=== PATIENT | male | born 1975 | race Two or more races ===

== ENCOUNTER 2021-05-25 14:55 | Emergency (ER) | payer MEDICAID, SELFPAY ==
[2021-05-25 14:56] VITALS: BP 157/96; PULSE 95; RESP 16; TEMP 36.8; O2SAT 100; BMI 26.1
--- NOTE | 2021-05-25 15:52 | CT_ITS ---
HISTORY: flank pain. TECHNIQUE: Helically acquired images were obtained of the abdomen and pelvis without oral or IV contrast as per renal stone protocol. A radiation dose optimization technique was used for this scan. # of images incl. paperwork: [id number]. COMPARISON: None. FINDINGS: LUNG BASES: Clear. BOWEL: Bowel including appendix nondilated. Colonic diverticulosis without pericolonic inflammation. PERITONEUM: No significant ascites. LIVER/BILIARY TRACT: Unremarkable liver.Gallbladder contracted. SPLEEN: Non-enlarged. PANCREAS: No peripancreatic inflammation. KIDNEYS AND URETERS: Bilateral 2-3 mm renal calculi. No obstructing ureterolithiasis. ADRENAL GLANDS: Non-enlarged. VESSELS: No abdominal aortic aneurysm. PELVIC ORGANS: Bladder wall thickening with mild perivesical and periprostatic stranding. Small prostate calcifications with a 5 mm calcification in the region of the prostatic urethra. ABDOMINAL WALL: Edema in the bilateral inguinal canals. Scrotal wall edema with mild hydroceles. BONES: Intact. CT/Abdomen/Pelvis without Cont IMPRESSION: Edema in the pelvis concerning for prostatocystitis. Extensive edema in the bilateral inguinal canals extending into the scrotum with mild scrotal hydroceles. 5 mm calcification in the central prostate gland, suspicious for calculus in the prostatic urethra. Bilateral nephrolithiasis without obstructing ureterolithiasis. Colonic diverticulosis without acute diverticulitis. Individualized dose optimization techniques were used for this CT. at 1639 Reported and signed by: Monica Santamaria MD Electronically Signed: Monica Santamaria MD at 16:37 EST Tel , Service support ,
--- NOTE | 2021-05-25 15:52 | US_ITS ---
STUDY: SCROTUM ULTRASOUND REASON FOR EXAM: Male, 46 years old. Pain TECHNIQUE: Ultrasound evaluation of the scrotum was performed with color Doppler and static paul-scale imaging. COMPARISON: None. FINDINGS: RIGHT TESTICLE INTRATESTICULAR: There is a normal size of the right testicle. The right testicle measures 4.4 x 3.4 x 2.9 cm. There is a homogenous echotexture. There is normal arterial and normal venous vascularity. There is no demonstrated right testicular mass or cyst. EXTRATESTICULAR: The epididymis is enlarged. The epididymis head measures 1.7 x 0.8 x 1.3 cm. There is increased vascularity of the epididymis. There is no demonstrated epididymal cystic structure. There is moderate sized complex hydrocele. There is no demonstrated varicocele. There is no demonstrated extratesticular mass or cyst. LEFT TESTICLE INTRATESTICULAR: There is a normal size of the left testicle. The left testicle measures 2.9 x 3.4 x 2.7 cm. There is a homogenous echotexture. There is normal arterial and normal venous vascularity. There is no demonstrated left testicular mass or cyst. EXTRATESTICULAR: The epididymis is enlarged. The epididymis head measures 1.6 x 1.2 x 0.9 cm. There is increased vascularity of the epididymis. There is no demonstrated epididymal cystic structure. There is moderate size complex hydrocele. There is no demonstrated varicocele. There is no demonstrated extratesticular mass or cyst. US/Testicular with Arterial Flow IMPRESSION: Findings consistent with bilateral acute epididymitis and complex hydroceles possibly inflammatory. Electronically Signed: Yovanny Best MD at 18:18 EST , Service support ,
--- NOTE | 2021-05-25 15:53 | EX.ED.GUMALE ---
HPI History of Present Illness Chief Complaint: Male Pain/Injury Narrative Narrative: 46-year-old male with multiple somatic complaints. He states that for the last 5 to 6 days he has had bilateral flank pain, right greater than left. He has pain underneath his testicles. He states he has dysuria and bladder pain when he tries to urinate mainly on the right. He denies any hematuria. No fevers or chills. He states that he thought maybe he had testicular pain from not ejaculating, and he states when he tried to ejaculate nothing came out. He denies any significant past medical history. He also states that he thinks his penis has been swollen for the last 5 to 6 days. PFSH PFSH Medical History no medical history Home Medications ciprofloxacin HCl [Cipro] 500 mg PO BID #28 tab 05/25/21 [Rx Last Taken Unknown] ibuprofen 800 mg PO Q8H PRN #30 tab 05/25/21 [Rx Last Taken Unknown] Allergy/AdvReac Type Severity Reaction Status Date / Time No Known Allergies Allergy Verified 05/25/21 14:56 Family History no significant family his Surgical History no surgical history Social History Smoking Status: Current every day smoker tobacco type: cigarettes ROS ROS ED ROS Narrative Constitutional: No fever, no chills. HEENT: No sore throat. No neck pain. No loss of vision. No rhinorrhea. Cardiovascular: No chest pain. No palpitations. No pedal edema. Respiratory: No cough, no shortness of breath. Abdominal: No abdominal pain. No nausea. No vomiting. Genitourinary: Positive dysuria. No hematuria. Bilateral testicular pain. Pain underneath his scrotum. Bilateral flank pain right greater than left. Bladder pain. Musculoskeletal: No myalgias. No arthralgias. Neurologic: No headaches. No dizziness. No lightheadedness. Skin: No rash. No change in color. Psychiatric: No depression. No anxiety. EXAM Physical Exam Narrative Exam Narrative: Afebrile. Vital signs noted. HEENT: Normocephalic. Atraumatic. PERRL, EOMI. Neck soft and supple. No point tenderness or step off. Cardiovascular: Regular rate and rhythm. No murmurs, rubs, or gallops appreciated. Respiratory: No tachypnea. Lungs clear to auscultation bilaterally. Gastrointestinal: Abdomen soft, nontender, with normoactive bowel sounds. No rebound or guarding. Genitourinary: Chaperoned examination reveals mild tenderness on frenulum of scrotum secondary to chafing. Bilateral testicular pain. No palpable hernia in the inguinal area. No erythema. No inguinal lymphadenopathy. No appreciable penile swelling. Neurological: Awake. Alert. Nonfocal, nonlateralizing. Skin: No rash. Normal color. No pallor. Musculoskeletal: No pedal edema. Full range of motion extremities. Const Vital Signs: 05/25/21 14:56 Temperature 98.3 F Temperature Source Temporal Pulse Rate 95 Respiratory Rate 16 Blood Pressure 157/96 H Blood Pressure Mean 116 Pulse Ox 100 Oxygen Delivery Method Room Air MDM MDM MDM Narrative Medical decision making narrative: Urinalysis was obtained. I will obtain CT imaging of the abdomen and pelvis without contrast to look for ureterolithiasis. I believe it would also show any sort of inguinal hernia. Given his testicular pain and reported swelling of his testicles and penis, ultrasound will be obtained. CBC shows an elevated white count of 15.3, hemoglobin stable at 12.4, platelet count is normal. Electrolyte panel shows normal creatinine of 0.75 with a BUN of 14. His urinalysis shows 25 leukocyte esterase but no nitrites. Only 5-10 WBCs are seen on microscopic examination. Lactic acid is normal. Ultrasound was obtained of the scrotum contents which shows bilateral epididymitis and inflammatory hydroceles. I did obtain a CT of the abdomen and pelvis without contrast. While there is no evidence of hernia, there is noted edema in the bilateral inguinal areas extending into the scrotum. There is inflammation and fluid noticed in the pelvis consistent with prostatitis cystitis. At this point in time, patient will be started on antibiotics. He will also be started on anti-inflammatories. He was told to follow-up with urology and was referred to Dr. Varela. I feel he can be discharged safely home with follow-up. He was given a prescription for ciprofloxacin for the next 14 days to take twice a day which should treat his epididymitis and his prostatitis/prostatocystitis. Strict return instructions were reviewed. Patient is comfortable with the plan. Disposition is discharged home in stable condition. Lab Data Attestation: I reviewed the patient's lab results. Labs: Laboratory Results - last 24 hr 05/25/21 05/25/21 05/25/21 15:38 17:30 17:30 WBC 15.3 H RBC 3.98 L Hgb 12.4 L Hct 36.3 L MCV 91.2 MCH 31.2 MCHC 34.2 RDW Std Deviation 39.8 RDW Coeff of Halima 11.7 Plt Count 311 MPV 9.1 Immature Gran % (Auto) 0.600 Neut % (Auto) 78.1 H Lymph % (Auto) 10.1 L Kingsbury % (Auto) 6.8 Eos % (Auto) 3.9 Baso % (Auto) 0.5 Absolute Neuts (auto) 11.9 H Absolute Lymphs (auto) 1.54 Nucleated RBC % 0 Sodium 138 Potassium 3.7 Chloride 106 Carbon Dioxide 27.0 Anion Gap 5 BUN 14 Creatinine 0.75 Estim Creat Clear Calc 124.38 Est GFR (MDRD) Af Amer 146 Est GFR (MDRD) Non-Af 120 BUN/Creatinine Ratio 18.7 Glucose 181 H Lactic Acid Calcium 8.8 Urine Color Yellow Urine Clarity Clear Urine pH 6.0 Ur Specific Art 1.020 Urine Protein Negative Urine Glucose (UA) Normal Urine Ketones Negative Urine Occult Blood 10 H Urine Nitrite Negative Urine Bilirubin Negative Urine Urobilinogen Normal Ur Leukocyte Esterase 25 H Urine RBC 0 SEEN Urine WBC 5-10 SEEN Ur Squamous Epith Cells 0 SEEN Urine Bacteria 0 SEEN Urine Mucus 0 SEEN 05/25/21 17:30 WBC RBC Hgb Hct MCV MCH MCHC RDW Std Deviation RDW Coeff of Halima Plt Count MPV Immature Gran % (Auto) Neut % (Auto) Lymph % (Auto) Kingsbury % (Auto) Eos % (Auto) Baso % (Auto) Absolute Neuts (auto) Absolute Lymphs (auto) Nucleated RBC % Sodium Potassium Chloride Carbon Dioxide Anion Gap BUN Creatinine Estim Creat Clear Calc Est GFR (MDRD) Af Amer Est GFR (MDRD) Non-Af BUN/Creatinine Ratio Glucose Lactic Acid 0.7 Calcium Urine Color Urine Clarity Urine pH Ur Specific Art Urine Protein Urine Glucose (UA) Urine Ketones Urine Occult Blood Urine Nitrite Urine Bilirubin Urine Urobilinogen Ur Leukocyte Esterase Urine RBC Urine WBC Ur Squamous Epith Cells Urine Bacteria Urine Mucus Radiography Diagnostic Testing: Clinical Impression(s) from Imaging Studies Abdomen/Pelvis CT 05/25/21 15:52 IMPRESSION: Edema in the pelvis concerning for prostatocystitis. Extensive edema in the bilateral inguinal canals extending into the scrotum with mild scrotal hydroceles. 5 mm calcification in the central prostate gland, suspicious for calculus in the prostatic urethra. Bilateral nephrolithiasis without obstructing ureterolithiasis. Colonic diverticulosis without acute diverticulitis. Individualized dose optimization techniques were used for this CT. at 1639 Reported and signed by: Monica Santamaria MD Electronically Signed: Monica Santamaria MD at 16:37 EST Tel , Service support , Testicular Ultrasound 05/25/21 15:52 IMPRESSION: Findings consistent with bilateral acute epididymitis and complex hydroceles possibly inflammatory. Electronically Signed: Yovanny Best MD at 18:18 EST , Service support , Discharge Plan Triage Chief Complaint: Male Pain/Injury ED Provider: Scott Connor Dx/Rx/DC Orders Clinical Impression: Prostatocystitis, Epididymitis Instructions: ED Epididymitis, ED Prostatitis Prescriptions: New ciprofloxacin HCl [Cipro] 500 mg tablet 500 mg PO BID Qty: 28 RF: 0 ibuprofen 800 mg tablet 800 mg PO Q8H PRN (Reason: pain) Qty: 30 RF: 0 Primary Care Provider: Care Physician,No Primary Referrals: Lex Varela MD [STAFF PHYSICIAN] - 05/27/21 Care Physician,No Primary [Primary Care Provider] - Disposition Disposition: Home, Self Care
[2021-05-25 16:08] LABS: Bacteria 0 SEEN /hpf (None Seen); Mucous, Urine 0 SEEN /hpf (<or=2+); Red Blood Cells-Urine 0 SEEN /hpf (0-5); Squamous Epithelial Cells - UA 0 SEEN /hpf (0-5)
[2021-05-25 16:10] LABS: Color, Urine Yellow (Yellow); Glucose, Dipstick Normal (Normal); Ketone-Dipstick Negative (Negative); Leukocyte Esterase-Dipstick 25 /ul (Negative); Nitrite-Dipstick Negative (Negative); Occult Blood-Urine 10 /ul (Negative); Protein-Dipstick Negative (Negative); Urine Bilirubin Dipstick Negative (Negative); Urine Clarity Clear (Clear); Urine Urobilinogen Normal (Normal)
[2021-05-25 16:17] LABS: White Blood Cells 5-10 SEEN /hpf (0-5)
[2021-05-25 17:39] LABS: Absolute Lymphocyte Count 1.54 X10^3/uL (0.83-4.51); Absolute Neutrophil Count 11.9 X10^3/uL (2.0-7.7); Basophil# 0.08 X10^3/uL; Basophil% 0.5 % (0-1); Eosinophils% 3.9 % (0-5); Hematocrit 36.3 % (40-54); Hemoglobin 12.4 g/dL (13.0-16.5); Lymphocyte # 1.54 X10^3/ul (0.83-4.51); Lymphocyte % 10.1 % (19-41); Mean Corp Hgb Conc 34.2 g/dL (32-36); Mean Corpuscular Hgb 31.2 pg (27.0-32.0); Mean Corpuscular Volume 91.2 fL (80-94); Mean Platelet Vol. 9.1 fl (6.2-12.0); Monocyte# 1.04 X10^3/uL; Monocyte% 6.8 % (0-10); NRBC Flagged by Analyzer 0 % (0-5); Neutrophil # 11.92 X10^3/uL (2.7-7.7); Neutrophil % 78.1 % (47-70); Platelet Count 311 K/mm3 (150-450); RBC Distribution Width CV 11.7 % (11.6-14.6); RBC Distribution Width SD 39.8 fl (35.1-43.9); Red Blood Count 3.98 M/mm3 (4.6-6.2); White Blood Count 15.3 K/mm3 (4.4-11.0)
[2021-05-25 17:52] LABS: Anion Gap 5 (5-15); BUN 14 mg/dL (7-18); BUN/Creat Ratio 18.7 RATIO (10-20); Calcium,Total 8.8 mg/dL (8.5-10.1); Chloride 106 mmol/L (98-107); Creatinine, Serum 0.75 mg/dL (0.70-1.30); EST Glomerular Filtration Rate 120 mL/min (>60); Est Glom Filt Rate - Afr Amer 146 mL/min (>60); Estimated Creatinine Clearance 124.38 ml/min; Glucose 181 mg/dL (74-106); Potassium 3.7 mmol/L (3.5-5.1); Sodium Level 138 mmol/L (136-145)
[2021-05-25 18:00] LABS: Lactic Acid 0.7 mmol/L (0.4-1.9)
[2021-05-25 19:52] VITALS: RESP 18
[2021-05-25] MEDS: Ciprofloxacin 500 MG Tablet PO (19:52)
== END 2021-05-25 19:54 | disposition home or self-care (01) ==
PROVIDERS: Emergency Provider Emergency Medicine
DX: N41.3 Prostatocystitis (principal); N45.1 Epididymitis; F17.210 Nicotine dependence, cigarettes, uncomplicated
CPT/HCPCS: 74176; 76870; 80048; 81001; 83605; 85025; 93976; 99283; A4216

== ENCOUNTER 2021-08-07 17:59 | Emergency (ER) | payer MEDICAID, SELFPAY ==
[2021-08-07 18:01] VITALS: BP 151/110; PULSE 85; RESP 14; TEMP 36.8; O2SAT 98; BMI 23.5
--- NOTE | 2021-08-07 18:06 | ED.VIS.LOWEX ---
HPI History of Present Illness Chief Complaint: Laceration Detail of Chief Complaint: Laceration distal anterior right leg Informant: patient Occured/Mechanism Mechanism/Context: Yes blunt trauma Comment: Laceration distal anterior right leg due to jewel bearing grinder Onset/Context/Timing Context: Sudden Onset Timing: Continuous Location: Anterior distal right leg Current Severity: Mild Maximum Severity: Moderate Worsened by: Laceration Relieved by: Not applicable Associated Symptoms Associated Symptoms: Negative for Parasthesia, Weakness and Loss of Funtion Narrative Narrative: Patient is a 46-year-old male who was fabricating a metal part for a go-cart. He states the jewel bearing grinder jumped and he sustained laceration to the distal anterior right leg. He denies paresthesia, anesthesia medics. He does not recall his last tetanus shot and believes it was greater than 10 years. He has no history of diabetes. He has no history of PAD. Tetanus Immunization: >10 years Prior similar symptoms: No Recent Illness/Hospitalization: No PFSH PFSH Home Medications ciprofloxacin HCl [Cipro] 500 mg PO BID #28 tab 05/25/21 [Rx Last Taken Unknown] ibuprofen 800 mg PO Q8H PRN #30 tab 05/25/21 [Rx Last Taken Unknown] Allergy/AdvReac Type Severity Reaction Status Date / Time No Known Allergies Allergy Verified 08/07/21 18:01 Social History (Updated 08/07/21 @ 18:[address] Rebel Herbert MD) household members: spouse Smoking Status: Current every day smoker tobacco type: cigarettes substance use type: does not use ROS ROS ED Musculoskeletal Musculoskeletal: Denies arthralgias, back pain, myalgias or neck pain Integumentary Reports other Details: Laceration as previously described ; Denies abscess, Abrasions or rash Neurologic Neurologic: Denies paresthesias or weakness Hematologic/Lymphatic Hematologic/Lymphatic: Denies anemia, easy bleeding or easy bruising EXAM Physical Exam Const Vital Signs: 08/07/21 18:01 Temperature 98.2 F Temperature Source Temporal Pulse Rate 85 Respiratory Rate 14 Blood Pressure 151/110 H Blood Pressure Mean 123 Pulse Ox 98 Oxygen Delivery Method Room Air Positive well nourished and well developed General Appearance ED: well developed and NAD HEENT normocephalic and atraumatic Eyes PERRL Eyes Narrative: Extract muscle intact. Sclerae anicteric. Neck full ROM Resp normal respiratory effort Cardio regular rate and regular rhythm Extremity full ROM; Negative for normal to inspection Extremity Narrative: Patient has an approximate 2.5 cm laceration. There is active bleeding. DP and PT pulse are palpable. Sensation over the dorsal and plantar surface of the foot are normal. General Extremety ED: Negative for cyanosis, edema or weight-bearing difficulty General Extremity: Negative for cyanosis, edema or weight-bearing difficulty Neuro oriented x3, CN's II-XII intact bilaterally and no sensory deficits noted Sensorium / Orientation: alert Motor Exam: strength 5/5 throughout Psych mental status grossly normal Skin Lesions: no lesions Rashes: no rashes Trauma: laceration linear, actively bleeding, involves subcutaneous tissue, motor nerve function intact and sensation intact MDM MDM MDM Narrative Medical decision making narrative: Tetanus was updated and laceration will require repair please read procedure note. Procedures Other Procedures Procedure(s): Length of laceration is 2.2 cm. The wound was anesthetized with 1% lidocaine by local infiltration. The wound was cleansed and irrigated. 4 simple interrupted sutures placed using 4-0 Ethilon. Bleeding stopped. Discharge Plan Triage Chief Complaint: Laceration ED Provider: Rebel Herbert Dx/Rx/DC Orders Clinical Impression: Laceration of right lower leg Instructions: ED Laceration: All Closures Prescriptions: No Action ciprofloxacin HCl [Cipro] 500 mg tablet 500 mg PO BID Qty: 28 RF: 0 ibuprofen 800 mg tablet 800 mg PO Q8H PRN (Reason: pain) Qty: 30 RF: 0 Primary Care Provider: Care Physician,No Primary Referrals: Care Physician,No Primary [Primary Care Provider] - Activity Restrictions/Additional Instructions: The name of your physician is typed on your insurance card. Contact your physician to have sutures removed in 10 to 14 days. Clean wound with peroxide on a Q-tip 3 times a day then apply bacitracin ointment Keep wound clean and dry for the first 48 to 72 hours.
[2021-08-07] MEDS: Diphth,Pertuss(Acell),Tet Vac 0.5 ML Vial IM (18:16)
[2021-08-07] MEDS: Lidocaine 1% (20 ml mdv) 20 ML Vial INFILT (18:17)
== END 2021-08-07 18:36 | disposition home or self-care (01) ==
LOC: ED 18:33
PROVIDERS: Emergency Provider Emergency Medicine; Visit Provider Emergency Medicine
DX: S81.811A Laceration without foreign body, right lower leg, initial encounter (principal); F17.210 Nicotine dependence, cigarettes, uncomplicated; Z23 Encounter for immunization; X58.XXXA Exposure to other specified factors, initial encounter
CPT/HCPCS: 12001; 90471; 90715; 99282

== ENCOUNTER 2021-09-26 23:25 | Emergency (ER) | payer MEDICAID, SELFPAY ==
[2021-09-26 23:27] VITALS: BP 167/105; PULSE 96; RESP 18; TEMP 36.4; O2SAT 100; BMI 21.6
--- NOTE | 2021-09-26 23:34 | EX.ED.VIS.EY ---
HPI History of Present Illness Chief Complaint: Eye Problem Narrative Narrative: 46-year-old male with foreign body sensation to the left eye. He states he was grinding on a golf cart 3 days ago and felt a foreign body sensation in the left eye. It did become significantly painful until today. He complains of pain in the center of his eye. He does have eye watering. Denies any other trauma. He is a noncontact wearer. No visual complaints. PFSH PFSH Home Medications ciprofloxacin HCl [Cipro] 500 mg PO BID #28 tab 05/25/21 [Rx Last Taken Unknown] ibuprofen 800 mg PO Q8H PRN #30 tab 05/25/21 [Rx Last Taken Unknown] ketorolac 1 drp EACH EYE Q6H PRN #5 ml 09/27/21 [Rx Last Taken Unknown] ofloxacin 2 drp LEFT EYE Q6H #10 ml 09/27/21 [Rx Last Taken Unknown] Allergy/AdvReac Type Severity Reaction Status Date / Time No Known Allergies Allergy Verified 08/07/21 18:01 Social History household members: spouse Smoking Status: Current every day smoker tobacco type: cigarettes substance use type: does not use ROS ROS ED Constitutional Constitutional ED: Denies chills or fever(s) Eyes Eyes: Reports other Details: Left eye watering and irritation. ENT ENT ED: Denies rhinorrhea or sore throat Cardiovascular Cardiovascular: Denies chest pain or palpitations Respiratory/Chest Respiratory/Chest: Denies cough or dyspnea Gastrointestinal Gastrointestinal: Denies abdominal pain, nausea or vomiting Genitourinary Genitourinary ED: Denies dysuria or hematuria Musculoskeletal Musculoskeletal: Denies arthralgias or myalgias Integumentary Denies rash Neurologic Neurologic: Denies headache(s), paresthesias or weakness Psychiatric Psychiatric: Denies anxiety or depression EXAM Physical Exam Const Vital Signs: 09/26/21 23:27 Temperature 97.6 F L Temperature Source Temporal Pulse Rate 96 Respiratory Rate 18 Blood Pressure 167/105 H Blood Pressure Mean 125 Pulse Ox 100 Oxygen Delivery Method Room Air Positive well nourished General Appearance ED: NAD HEENT atraumatic; Negative for trauma Eyes Visual Field: No peripheral vision loss Alignment: alignment normal Periorbital: No periorbital findings normal Eyelid: eyelids normal Sclera: sclera abnormal Positive for left Details: scleral injection Cornea: cornea abnormal Positive for left Cornea - Left Eye: Positive for foreign body (Plan to be symmetrical just right of the midline in the cornea in the 9:00 direction with rust ring) Details: Positive for metal Pupil: PERRL and accommodation reflex normal Direct Ophthalmoscopy: normal light reflex Slit Lamp: slit lamp exam performed with fluorescein, lids/lashes/lacrimal system normal appearing and conjunctiva/sclera diffuse conjunctiva injection Resp normal respiratory effort and clear to auscultation bilaterally Cardio regular rate and regular rhythm Neuro oriented x3 and CN's II-XII intact bilaterally Sensorium / Orientation: alert MDM MDM MDM Narrative Medical decision making narrative: Patient is a noncontact wearer. Fluorescein and tetracaine are instilled into the left eye. Patient did not have significant control of his irritation of the left eye. I did examine him under [place] lamp and I cannot see the foreign body which appears to be metal with a rust ring. I did attempt to use the bur to try to get this out however it was technically difficult because the patient cannot hold his own eyes open even while using his own hands. He stated at this point that he would rather follow-up with an dietician. I spoke with Dr. Ramon who recommended putting him on ofloxacin. I tried to order this at the hospital however they do not have it in formulary. 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 Patient has an appointment tomorrow at 2 PM to have the metal foreign body removed. He was counseled to call the office in the morning to make sure this arrangement has been formally made. Patient discharged home in stable condition. Impression: 1. Foreign body left thigh 2. Corneal abrasion Discharge Plan Triage Chief Complaint: Eye Problem ED Provider: Valente Pandya Dx/Rx/DC Orders Instructions: ED Corneal Abrasion, ED RUST RING Prescriptions: New ofloxacin 0.3 % drops 2 drp LEFT EYE Q6H Qty: 10 RF: 0 ketorolac 0.5 % drops 1 drp EACH EYE Q6H PRN (Reason: pain) Qty: 5 RF: 0 No Action ciprofloxacin HCl [Cipro] 500 mg tablet 500 mg PO BID Qty: 28 RF: 0 ibuprofen 800 mg tablet 800 mg PO Q8H PRN (Reason: pain) Qty: 30 RF: 0 Primary Care Provider: Care Physician,No Primary Referrals: Lalo Grimm MD [STAFF PHYSICIAN] - As soon as possible Care Physician,No Primary [Primary Care Provider] - Disposition Disposition: Home, Self Care Discharge Date/Time: 09/27/21 00:28
[2021-09-27] MEDS: Erythromycin Base 1 OPTH.TUBE 1 APPLIC LEFT EYE (00:26)
[2021-09-27 00:27] VITALS: BP 134/78; PULSE 78; RESP 14; TEMP 36.9; O2SAT 98
== END 2021-09-27 00:28 | disposition home or self-care (01) ==
PROVIDERS: Emergency Provider Student in an Organized Health Care Education/Training Program; Visit Provider Student in an Organized Health Care Education/Training Program
DX: T15.92XA Foreign body on external eye, part unspecified, left eye, initial encounter (principal); S05.02XA Injury of conjunctiva and corneal abrasion without foreign body, left eye, initial encounter; F17.210 Nicotine dependence, cigarettes, uncomplicated; X58.XXXA Exposure to other specified factors, initial encounter
CPT/HCPCS: 99282

== ENCOUNTER → 2021-12-04 | Outpatient (CLI) | payer MEDICAID, SELFPAY ==
[2021-12-04 18:13] LABS: Chlamydia Trachomatis by PCR Negative (Negative); Neisserai gonorrhoeae by PCR Positive (Negative); Probe Check PASS; Sample Adequacy Control PASS; Specimen Processing Control PASS; Trichomonas Vag DNA by PCR Negative (Negative)
[2021-12-06 09:17] LABS: HIV - WCH Non-Reactive (Nonreactive); Syphilis Antibodies Non-reactive
== END | disposition home or self-care (01) ==
LOC: LAB 14:13
PROVIDERS: Referring Provider Nurse Practitioner Adult Health; Visit Provider Nurse Practitioner Adult Health
DX: Z11.3 Encounter for screening for infections with a predominantly sexual mode of transmission (principal)
CPT/HCPCS: 36415; 86703; 86780; 87491; 87591; 87661

== ENCOUNTER 2023-12-29 17:16 | Emergency (ER) | payer OTHER, MEDICAID, SELFPAY ==
[2023-12-29 17:17] VITALS: BP 125/80; PULSE 88; RESP 18; TEMP 37; O2SAT 97; BMI 23.4
[2023-12-29 17:21] VITALS: BP 125/80; PULSE 88; RESP 18; TEMP 37; O2SAT 97
--- NOTE | 2023-12-29 17:30 | CT_ITS ---
STUDY: CT BRAIN WITHOUT CONTRAST REASON FOR EXAM: Male, 48 years old. Change in Mental Status RADIATION DOSAGE (If Supplied By Facility): CTDIvol = ( 44.99 ) mGy, DLP = ( 829.85 ) mGycm TECHNIQUE: Transaxial CT imaging of the brain was performed without administration of intravenous contrast material. Individualized dose optimization techniques were used for this CT. COMPARISON: No relevant priors. FINDINGS: Normal soft tissue structures. Normal calvarium. Normal size ventricles and extra-axial spaces for the patient''s age. Normal white matter tracts of the cerebral hemispheres. Normal basal ganglia and thalami. Normal brainstem. Normal cerebellum. There is no intracranial hemorrhage. There are no findings of an acute ischemic infarction. Mucosal thickening of left maxillary bilateral posterior ethmoid and sphenoid sinuses. CT/Brain/Head without Contrast IMPRESSION: Normal unenhanced CT scan of the brain. 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
--- NOTE | 2023-12-29 17:30 | ED.RN ---
PT WANTED MOTHER NOTIFIED, OFFICER [employer]ARK ADVISED & LOOKING FOR A PHONE NUMBER TO CONTACT.
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
--- NOTE | 2023-12-29 18:04 | ED.RN ---
THIS RN ATTEMPTED TO CALL SEVERAL NUMBERS FOR PT. FAMILY MEMBER RENAN, AND MOTHER. NONE OF THE 4 PHONE NUMBERS THAT WERE GIVEN WERE ABLE TO RECEIVE PHONE CALLS OR IN SERVICE. PT. PHONE CHARGING AT DESK.
[2023-12-29 18:10] LABS: Absolute Lymphocyte Count 1.79 X10^3/uL (0.83-4.51); Absolute Neutrophil Count 2.2 X10^3/uL (2.0-7.7); Basophil# 0.06 X10^3/uL; Basophil% 1.2 % (0-1); Hematocrit 37.9 % (40-54); Hemoglobin 12.4 g/dL (13.0-16.5); Lymphocyte # 1.79 X10^3/ul (0.83-4.51); Lymphocyte % 36.1 % (19-41); Mean Corp Hgb Conc 32.7 g/dL (32-36); Mean Corpuscular Hgb 29.6 pg (27.0-32.0); Mean Corpuscular Volume 90.5 fL (80-94); Mean Platelet Vol. 10.4 fl (6.2-12.0); Monocyte# 0.71 X10^3/uL; Monocyte% 14.3 % (0-10); NRBC Flagged by Analyzer 0 % (0-5); Neutrophil # 2.18 X10^3/uL (2.7-7.7); Platelet Count 144 K/mm3 (150-450); RBC Distribution Width CV 13.4 % (11.6-14.6); RBC Distribution Width SD 44.3 fl (35.1-43.9); Red Blood Count 4.19 M/mm3 (4.6-6.2)
[2023-12-29 18:17] VITALS: BP 117/75; PULSE 82; RESP 16; TEMP 36.2; O2SAT 95
[2023-12-29 18:21] VITALS: BP 117/75; PULSE 82; RESP 16; TEMP 36.2; O2SAT 95
[2023-12-29 18:39] LABS: Anion Gap 3 (5-15); BUN 8 mg/dL (7-18); BUN/Creat Ratio 12.5 RATIO (10-20); Calcium,Total 8.3 mg/dL (8.5-10.1); Chloride 116 mmol/L (98-107); Creatinine, Serum 0.64 mg/dL (0.70-1.30); EST Glomerular Filtration Rate 142 mL/min (>60); Est Glom Filt Rate - Afr Amer 172 mL/min (>60); Estimated Creatinine Clearance 142.69 ml/min; Glucose 93 mg/dL (74-106); Potassium 4.1 mmol/L (3.5-5.1); Sodium Level 145 mmol/L (136-145); Thyroid Stim Hormone (TSH) 0.72 uIU/mL (0.358-3.74)
[2023-12-29 19:30] LABS: Amphetamine Urine VISTA POSITIVE (<1000 ng/mL); Barbiturate Urine VISTA NEGATIVE (< 200 ng/mL); Benzodiazepine Urine VISTA NEGATIVE (< 200 ng/mL); Cocaine Urine VISTA NEGATIVE (< 300 ng/mL); Ecstacy Urine VISTA NEGATIVE (< 500 ng/mL); Methadone Urine VISTA NEGATIVE (< 300 ng/mL); PCP Urine VISTA NEGATIVE (< 25 ng/mL); THC Urine VISTA NEGATIVE (< 50 ng/mL); Vista UDS pH Range 5
--- NOTE | 2023-12-29 20:05 | ED.RN ---
pt getting agitated and begins asking for his clothes at this time. this rn states that we are unable to do give him his clothing right now but will check with the dr. pt gets increasingly agitated and pulls out his iv. when dr harris came out of a room, this rn asks if pt is pink slipped. dr. harris states the patient is not pink slipped and goes in to talk to pt. comes out of room and states that pt is to be discharged home as soon as his mother is here and in the room. dr harris orders for pt to have dressing changed to arm and bactrim given. HRO and security in [place] until pt calms down. will continue to monitor.
[2023-12-29] MEDS: Smz/Tmp Ds Tablet 1 TABLET PO (20:07)
[2023-12-29 20:15] VITALS: BP 127/83; PULSE 86; RESP 16; TEMP 36.7; O2SAT 95
== END 2023-12-29 20:38 | disposition left against medical advice (07) ==
PROVIDERS: Emergency Provider Emergency Medicine; Visit Provider Emergency Medicine
DX: L02.413 Cutaneous abscess of right upper limb (principal); F15.90 Other stimulant use, unspecified, uncomplicated; F17.210 Nicotine dependence, cigarettes, uncomplicated
CPT/HCPCS: 10060; 70450; 80048; 80307; 82077; 84443; 85025; 99284